=== PATIENT | male | born 1945 | race Caucasian/White ===

== ENCOUNTER 2019-01-19 08:32 | Inpatient (IN) | payer OTHER ==
[~2019-01-19] VITALS: Ht 177.8 cm; Wt 100.8 kg
--- NOTE | ~2019-01-19 | HC ---
[facility] [place] [address] CONSULTATION Name: RALPH BRADSHAW Room #: 357-P ADM IN M.R.#: [id number] Admission: 01/19/19 Attend Phys: Julian Davies MD Discharge: Date of : 41 Report #: [id number] THIS REPORT FOR: //name// CC: Cristino Davies REASON FOR CONSULTATION: End-stage renal disease. REASON FOR PRESENTATION: Weakness. HISTORY OF PRESENT ILLNESS: This has an end-stage renal disease patient, who does not have a good understanding of his medical problems. He has been on dialysis for some time. He follows with another design analyst. Unfortunately, the details are not clear to me. The patient was brought because of repeated falls per the history, but the patient completely denies any falls. He dialyzes every Thursday, Thursday and Thursday. He was at for some time. He did not intend to go to his dialysis on Thursday, which was yesterday. He was brought to the hospital for further evaluation of his falls. There is a report that he had some runs of V-tach en route. Again, the details of the history are very limited given the patient's unawareness of his medical issues. ALLERGIES: MEPERIDINE. MEDICATIONS: 1. Lisinopril. 2. Carvedilol. 3. Fentanyl. 4. Gabapentin. 5. Glipizide. 6. Levothyroxine. 7. Requip. 8. Sevelamer PAST MEDICAL HISTORY: 1. Diabetes mellitus, even though the patient denies awareness of diabetes mellitus. 2. Hypertension. 3. End-stage renal disease with unclear source. 4. Right AV fistula. REVIEW OF SYSTEMS: The patient's mental status is not clear enough to provide me with the details of his review of systems. FAMILY HISTORY: Unobtainable given the patient's current mental status. PHYSICAL EXAMINATION: GENERAL: He is somewhat confused. [facility] [address] [place] [address] CONSULTATION Name: RALPH BRADSHAW Room #: 357-P [facility].#: [id number] Admission: 01/19/19 Attend Phys: Julian Davies MD Discharge: Date of : 41 Report #: [id number] VITAL SIGNS: Blood pressure is 150/80. He is afebrile, temperature 37.1; pulse rate is 87. HEAD AND NECK: No jugular venous distention. CHEST: Minimal crackles. CARDIOVASCULAR: No rub detected. ABDOMEN: Soft, nontender. EXTREMITIES: Lower extremities: No edema. Upper extremities: Right AV fistula. LABORATORY DATA: Reviewed. Sodium 138, BUN is 44, creatinine is 6.2, calcium is 10.2, phosphorus is 6.6. IMPRESSION AND PLAN: 1. End-stage renal disease. 2. Noncompliance. 3. Diabetes mellitus. 4. Hypertension. 5. Repeated falls. 6. The patient received hemodialysis appropriately yesterday and we will continue to do the usual dialysis every Thursday, Thursday and Thursday. 7. He does have major issues with hypercalcemia and hyperphosphatemia. His hypercalcemia is likely related to vitamin D products that he received in his dialysis unit and those will be held. His hyperphosphatemia is expected and likely related to noncompliance with medications and diet. He was initiated on his phosphorus binders. By: [id number] Marie Conrad MD /nt
[~2019-01-19 08:32] MED LIST: CIPRO500 MG PO; HYDROCODONE-AP1 EAC6; PRINIVIL10 MG PO
[2019-01-19 10:02] LABS: CALCIUM 10.9 mg/dL (8.5-10.1); CREATININE 10.5 mg/dL (0.7-1.3); POTASSIUM 5.3 mmol/L (3.5-5.1)
[2019-01-19 10:08] LABS: ABSOLUTE NEUTROPHILS 9.5 thou/uL (1.4-8.2); BASOPHILS 0.3 % (0.0-2.0); EOSINOPHILS 0.3 % (0.0-3.0); HEMATOCRIT 27.5 % (42.0-52.0); HEMOGLOBIN 8.8 gm/dL (14.0-18.0); INR 2.8; LYMPHOCYTES 6.5 % (24.0-44.0); MCH 30.3 pg (26.0-34.0); MCV 94.9 fL (80.0-100.0); MONOCYTES 7.9 % (1.0-8.0); PLATELET COUNT 229 thou/uL (150-400); PROTIME 29.4 Seconds (9.3-11.4); RDW 19.6 % (10.5-14.5); WBC 11.2 thou/uL (4.0-11.0)
[2019-01-19 10:20] LABS: ALBUMIN 2.6 g/dL (3.4-5.0); DIRECT BILIRUBIN 0.1 mg/dL (<0.1-0.2); MAGNESIUM 2.7 mg/dL (1.8-2.4); TOTAL BILIRUBIN 0.3 mg/dL (<0.1-1.0); TOTAL PROTEIN 8.2 g/dL (6.4-8.2)
[2019-01-19 13:37] VITALS: BP 151/82
[2019-01-19 15:00] VITALS: BP 153/82
[2019-01-19 15:03] VITALS: BP 149/92
[2019-01-19 16:42] VITALS: BP 164/97
--- NOTE | 2019-01-19 17:48 | NUR ---
PT CARE ASSUMED APPROX 1500 FROM ED. ASSESSMENT CHARTED. PT DENIES PAIN AND SOA. VSS. SPOUSE AT BEDSIDE AT THIS TIME. ALL QUESTIONS ANSWERED AND CLINICAL UPDATES GIVEN. NO QUESTIONS REGARDING POC. PT TOLERATING HD. BS WNL. BRUISES NOTED BUT NO OPEN AREAS. SPOUSE REMAINS AT BEDSIDE. PT RESTING. NO DISTRESS.
[2019-01-19] MEDS ORDERED: LIPITOR40 MG PO (18:32)
[2019-01-19] MEDS ORDERED: CARVEDILOL12.5 MG PO (18:33)
[2019-01-19] MEDS ORDERED: VALIUM10 MG PO (18:35)
[2019-01-19] MEDS ORDERED: DELTA D310 MCG PO (18:35)
[2019-01-19] MEDS ORDERED: DEPAKOTE 250MG250 MG PO (18:42)
[2019-01-19] MEDS ORDERED: DULCOLAX STOOL100 M1 PO (18:44)
[2019-01-19] MEDS ORDERED: FENTANYL1 EAC4 TRANSDERM (18:45)
[2019-01-19] MEDS ORDERED: GLIPIZIDE 10 MG10 MG PO (18:46)
[2019-01-19] MEDS ORDERED: GABAPENTIN100 MG PO (18:46)
[2019-01-19] MEDS ORDERED: LEVO-T100 MCG PO (18:47)
[2019-01-19] MEDS ORDERED: REQUIP 0.25 M0.25 MG PO (18:48)
[2019-01-19] MEDS ORDERED: NEPHRO-VITE RX1 TA1 PO (18:48)
[2019-01-19] MEDS ORDERED: MIRALAX119 GM PO (18:48)
[2019-01-19] MEDS ORDERED: SENNA PLUS TAB1 EACH PO (18:49)
[2019-01-19] MEDS ORDERED: ZOLOFT100 MG PO (18:49)
[2019-01-19] MEDS ORDERED: SERTRALINE HCL100 MG PO (18:50)
[2019-01-19] MEDS ORDERED: FLOMAX0.4 MG PO (18:51)
[2019-01-19] MEDS ORDERED: RENVELA0.8 GM PO (18:51)
[2019-01-19 19:20] LABS: % SATURATION 19 % (20-39); IRON 23 ug/dL (65-175); TIBC 119 ug/dL (250-450)
[2019-01-19 20:04] LABS: FOLIC ACID 18.5 ng/mL (8.6-58.9)
[2019-01-19 20:58] VITALS: BP 142/69
[2019-01-19 23:56] VITALS: BP 178/98
[2019-01-20 04:25] VITALS: BP 152/86
--- NOTE | 2019-01-20 04:50 | NUR ---
Patient completed dialysis around 2029. His right arm/ arm with dialysis port continues to be red, swollen, and painful. Dialysis output: 2.5L this evening. Patient has struggled to uinate in the urinal NOC and attempts to use the urinal repeatedly, unsuccesfully. He moved his bowels using the bedpan NOC. Around 2199 patient became more hostile and vocalized his disatisfaction with his health issues and hospitalization. Patient denies the seriousness nature of his issues, stating he is "fine" and that he didn't fall at home. At this time he repeatedly called out for his and he didn't know where was. Nursing will continue to monitor.
[2019-01-20 05:49] LABS: HEMATOCRIT 27.6 % (42.0-52.0); HEMOGLOBIN 8.8 gm/dL (14.0-18.0); MCH 30.6 pg (26.0-34.0); MCV 95.5 fL (80.0-100.0); PLATELET COUNT 258 thou/uL (150-400); RBC 2.89 mil/uL (4.50-6.00); RDW 19.6 % (10.5-14.5); WBC 6.8 thou/uL (4.0-11.0)
[2019-01-20 06:06] LABS: ALBUMIN 2.6 g/dL (3.4-5.0); CALCIUM 10.2 mg/dL (8.5-10.1); MAGNESIUM 2.3 mg/dL (1.8-2.4); PHOSPHORUS 6.6 mg/dL (2.5-4.9)
[2019-01-20 06:28] LABS: CREATININE 6.2 mg/dL (0.7-1.3); POTASSIUM 3.9 mmol/L (3.5-5.1)
--- NOTE | 2019-01-20 07:37 | NUR ---
ASSESSMENT: CM REVIEWED CHART AND MET WITH PATIENT AT THE BEDSIDE. PT WAS ADMITTED FOR FREQUENT FALLS. PT HAS HX OF ESRD AND IS ON DIALYSIS. PT REPORTS THAT HE GOES TO [facility] AND GOES M-W- NOON CHAIR TIME. PT MISSED HIS DIALYSIS ON THURSDAY PER REPORT. PT LIVES AT HOME IN A HOUSE WITH HIS . PT REPORTS HE HAS ABOUT 5 STEPS TO ENTER THE HOME WITH HANDRAILS AND HAS 5 STEPS UP TO THE MAIN LEVEL AND 5 DOWN. PT REPORTS THAT HE AMBULATES USING A CANE OR WAKLER NORMALLY. PT REPORTS THAT HE HAS A GRAB BAR IN THE SHOWER. PT REPORTS HE HAS HAD [facility] IN THE PAST AND HAS ALSO BEEN TO [facility] FOR SNF STAY IN THE PAST. CM SPOKE WITH PATIENTS KAILA WHO REPORTS SHE WILL BE UP TO SEE PATIENT THIS EVENING BUT IF SHE NEEDS TO BE REACHED TO CONTACT HER AT WORK AT [phone]. CM PASSED THIS ON TO BEDSIDE RN. PT AWAITING PT/IOT EVALS. CM WILL CONTINUE TO FOLLOW TO ASSIST NEEDED.
[2019-01-20 07:54] VITALS: BP 163/90
--- NOTE | 2019-01-20 08:24 | EKG ---
[address] [address] ELECTROCARDIOGRAM REPORT Name: RALPH BRADSHAW Room #: 357-P ADM IN M.R.#: [id number] Admission: 01/19/19 Attend Phys: Julian Davies MD Discharge: Date of : 41 Report #: [id number] THIS REPORT FOR: //name// [facility] ED Test Date: 2019-01-19 Test Time: 08:40:44 Pat Name: RALPH BRADSHAW Department: Room: 357 Gender: M Box Brander: adwoa : 1945 Requested By: Nichole Montero Order Number: [id number] MD: Akhil Cordova Measurements Intervals [place] Rate: 80 P: -53 AR: 160 QRS: 248 QRSD: 159 T: 23 QT: 410 QTc: 473 Interpretive Statements Atrial-paced complexes RBBB No ischemic changes No further analysis attempted due to paced rhythm No previous ECG available for comparison Electronically Signed On 01-20-2019 8:24:02 [employer] by Akhil Cordova [email or web address] <ELECTRONICALLY SIGNED> By: Akhil Cordova MD 01/20/19 0824 9 9 Akhil Cordova MD /RAMON
--- NOTE | 2019-01-20 09:28 | NUR ---
Nutrition: Assessed due to consult for "other". Admit: frequent falls, missed dialysis, hyperkalemia. Hx: ESRD on dialysis MWF, HTN, a fib, diabetes, severe DJD. Pt on a renal diet. Resting in bed this AM during RD visit. He denies any nutrition concerns or questions. No appetite troubles and denies any skipping of meals. Reports familiarity w/ renal diet restrictions, declined any review. Discussed current elevated phos at 6.6, on renvela phosphate binders TID w/ meals. Pt replies, "If I , so what?" Encouraged pt to eat as able at meals, encouraging protein first. Pointed out eggs and 1/2 c milk as quiroz protein on breakfast today. He declined any added protein supplementation stating meals are "enough." Keep as low nutrition risk for now, monitor for any po changes.
[2019-01-20 09:54] LABS: ABSOLUTE NEUTROPHILS 5.2 thou/uL (1.4-8.2); ANISOCYTOSIS 1+; PLATELET ESTIMATE NORMAL
[2019-01-20 11:10] VITALS: BP 134/78
[2019-01-20 16:52] VITALS: BP 151/61
[2019-01-20 18:24] LABS: URINE BILIRUBIN NEGATIVE (Negative); URINE BLOOD 3+ (Negative); URINE CLARITY CLEAR; URINE COLOR YELLOW; URINE GLUCOSE-RANDOM* TRACE (Negative); URINE KETONES NEGATIVE (Negative); URINE NITRITE-REFLEX NEGATIVE (Negative); URINE PROTEIN (DIPSTICK) 2+ (Negative); URINE UROBILINOGEN 0.2 E.U./dl (0.2-1.0)
[2019-01-20 18:25] LABS: URINE LEUKOCYTES-REFLEX 2+ (Negative)
[2019-01-20 18:31] LABS: BACTERIA-REFLEX None Seen /HPF (None Seen); CASTS None Seen /LPF (None Seen); CRYSTALS None Seen /LPF (None Seen); SQUAMOUS None Seen /LPF (0-3); URINE RBC >20 Many /HPF (0-2); URINE WBC-REFLEX 0-5 Rare /HPF (0-5)
[2019-01-20 19:14] VITALS: BP 162/45
[2019-01-20 22:05] VITALS: BP 137/63
[2019-01-21 01:06] LABS: HEP B SURFACE Ab(ANTI-HBS Reactive (()); HEPATITIS B SURFACE AG Negative (Negative)
[2019-01-21 04:49] VITALS: BP 143/57
[2019-01-21 07:56] VITALS: BP 131/64
[2019-01-21 11:25] VITALS: BP 147/64
[2019-01-21 13:12] VITALS: BP 147/64
--- NOTE | 2019-01-21 13:15 | NUR ---
ON-GOING ASSESSMENT:CM REVIEWED CHART AND MET WITH PATIENT AT THE BEDSIDE. [facility] WAS CONSULTED AND REPORTED THEY COULD ACCEPT PT FOR ADMISSION. CM MET WITH PATIENT AT THE BEDSIDE AND HE STATES HE DOES NOT WANT TO GO TO [facility] AND HE IS GOING BACK HOME. CM DISCUSSED THE BENEFITS AND RECOMMENDATIONS FOR [facility] AND PT CONTINUES TO DELCINE. CM REACHED OUT TO PATIENTS KAILA WHO ALSO TRIED TO TALK TO PATIENT ABOUT GOING TO [facility] BUT PT IS NOT AGREEABLE. PT STATES HE PLANS ON RETURNING HOME WITH HH. PT HAD [facility] IN THE PAST SO CM FAXED REFERRAL AND THEY CAN ACCEPT PT. PLANS ARE FOR PATIENT TO LIKELY DISCHARGE OVER THE WEEKEND. IF PATIENTS DISCHARGES OVER THE WEEKEND CONTACT [facility] AT [phone] AND FAX THEM DISCHARGE ORDERS AND SUMMARY TO THEIR FAX:[phone]. ALSO FAX D/C SUMMARY AND ORDERS TO [facility] FAX:[phone].
--- NOTE | 2019-01-21 13:52 | NUR ---
PATIENT SEEN BY JUSTEN SMITH NP WITH DR. SIMS. PATIENT IS A CANDIDATE FOR ACUTE REHAB, BUT HAS DECLINED TO COME TO REHAB. PATIENT PLANS TO GO HOME EVEN AFTER DISCUSSED WITH PATIENT AND RECOMMENEDED PATIENT GO TO REHAB. DISCUSSED WITH SLEEVE SETTER SAF[employer]Y STITCH AND PHYSICIN IS AWARE. THANK YOU FOR THIS REFERRAL.
[2019-01-21 15:09] VITALS: BP 125/57
--- NOTE | 2019-01-21 18:33 | NUR ---
ASSUMED PATIENT CARE AT 0700. A/O X4. HD MOVED 2.5L. PATIENT REFUSED GO TO [facility]. ASSISTED UP WALK. SLOWLY TOWARDS POC GOALS.
[2019-01-21 19:50] VITALS: BP 138/40
[2019-01-22 03:30] VITALS: BP 147/72
[2019-01-22 05:11] LABS: HEMATOCRIT 24.2 % (42.0-52.0); HEMOGLOBIN 7.6 gm/dL (14.0-18.0); MCH 29.9 pg (26.0-34.0); MCHC 31.6 g/dL (28.0-37.0); MCV 94.8 fL (80.0-100.0); RBC 2.55 mil/uL (4.50-6.00); RDW 19.3 % (10.5-14.5); WBC 6.7 thou/uL (4.0-11.0)
[2019-01-22 05:22] LABS: CALCIUM 9.9 mg/dL (8.5-10.1); POTASSIUM 3.4 mmol/L (3.5-5.1)
[2019-01-22 05:29] LABS: CREATININE 4.8 mg/dL (0.7-1.3)
[2019-01-22 07:14] VITALS: BP 154/79
--- NOTE | 2019-01-22 07:20 | NUR ---
ASSUMED CARE AT 1900. ASSESSMENT COMPLETED. PT C/O HEADACHE AND RIGHT, LOWER BACK PAIN; GAVE TYLENOL ONCE AND PERCOCET ONCE. DENIED SOB. PT UP TO TOILET AROUND MIDNIGHT TO HAVE BM, BECAME NAUSEATED, HAD SMALL AMOUNT OF CLEAR EMESIS. OFFERED ANTI-EMETIC, BUT PT DECLINED AND HAD NO FURTHER NAUSEA OVERNIGHT. LOW URINE OUTPUT IN ROA, ONLY 50 ML; DID NOT HAVE A BM WHEN UP TO TOILET. POTASSIUM SLIGHTLY LOW, GAVE A ONE TIME DOSE PER DR. MATAMOROS. NO OTHER CONCERNS, SHIFT REPORT GIVEN AT 0700.
[2019-01-22 15:08] VITALS: BP 170/84
--- NOTE | 2019-01-22 16:34 | NUR ---
ASSUMED PATIENT CARE AT 0700. A/O X4. DEPRESSED. MISERABLE MORNING THAT WANTS . POOR APPETITE. WANTS GO HOME. NOT TOWARDS POC GOALS.
[2019-01-22 19:12] VITALS: BP 150/83
[2019-01-23 03:56] LABS: ABSOLUTE NEUTROPHILS 4.4 thou/uL (1.4-8.2); BASOPHILS 0.9 % (0.0-2.0); EOSINOPHILS 3.8 % (0.0-3.0); HEMATOCRIT 24.3 % (42.0-52.0); HEMOGLOBIN 7.7 gm/dL (14.0-18.0); LYMPHOCYTES 16.8 % (24.0-44.0); MCH 30.2 pg (26.0-34.0); MCHC 31.9 g/dL (28.0-37.0); MCV 94.7 fL (80.0-100.0); PLATELET COUNT 248 thou/uL (150-400); POLYS 66.5 % (36.0-66.0); RBC 2.56 mil/uL (4.50-6.00); RDW 19.2 % (10.5-14.5); WBC 6.6 thou/uL (4.0-11.0)
[2019-01-23 04:14] LABS: ALBUMIN 2.6 g/dL (3.4-5.0); CALCIUM 9.8 mg/dL (8.5-10.1); POTASSIUM 3.8 mmol/L (3.5-5.1)
[2019-01-23 04:15] LABS: CREATININE 6.2 mg/dL (0.7-1.3)
[2019-01-23 04:44] VITALS: BP 164/83
[2019-01-23 07:20] VITALS: BP 124/65
--- NOTE | 2019-01-23 07:26 | NUR ---
PATIENT IS ALERT AND ORIENTED. PATIENT IS UP WITH ONE. PATIENTS PAIN IS TREATED WITH PAIN MEDICATION. PATIENT IS DIALYSIS. PATIENT IS PENDING POSSIBLE DISCHARGE THIS AM. [facility].
[2019-01-23 08:55] VITALS: BP 124/65
[2019-01-23] MEDS ORDERED: CLOPIDOGREL75 MG PO (12:24)
[2019-01-23] MEDS ORDERED: PERCOCET 5-3251 EACH PO (12:36)
--- NOTE | 2019-01-23 15:14 | NUR ---
ASSUMED PATIENT CARE AT 0700. A/0 X4. NO DISDRESS NOTED. DC TO HOME NOW.
--- NOTE | 2019-01-25 16:15 | NUR ---
NOTIFIED BY NICOL AT [facility] THAT THEY DID NOT RECEIVED DC ORDERS/SUMMARY WHEN PT DISCHARGED 01/23. FAXED DC ORDERS/SUMMARY TO [facility] SPOKE WITH NICOL IN ADM SHE RECEIVED DC ORDERS AND WILL NOTIFY PT TIME OF VISITS.
== END 2019-01-23 15:18 | disposition home health service (06) | DRG 604 ==
LOC: ER 08:32 → 3W 11:50 → EROBS 11:50 → 3W 15:04
PROVIDERS: Emergency Medicine Emergency Medical Services; Internal Medicine; Nurse Practitioner; Nurse Practitioner Family; ADMIT Hospitalist
DX: S00.83XA Contusion of other part of head, initial encounter (principal); N18.6 End stage renal disease; E44.0 Moderate protein-calorie malnutrition; I47.2 Ventricular tachycardia; E70.1 Other hyperphenylalaninemias; I12.0 Hypertensive chronic kidney disease with stage 5 chronic kidney disease or end stage renal disease; E83.39 Other disorders of phosphorus metabolism; Z66 Do not resuscitate; M79.89 Other specified soft tissue disorders; E53.8 Deficiency of other specified B group vitamins; D63.8 Anemia in other chronic diseases classified elsewhere; M17.10 Unilateral primary osteoarthritis, unspecified knee; W18.39XA Other fall on same level, initial encounter; I48.91 Unspecified atrial fibrillation; G25.81 Restless legs syndrome; E03.9 Hypothyroidism, unspecified; E87.6 Hypokalemia; G89.29 Other chronic pain; M54.5 Low back pain; E11.22 Type 2 diabetes mellitus with diabetic chronic kidney disease; E78.5 Hyperlipidemia, unspecified; E83.52 Hypercalcemia; Z79.899 Other long term (current) drug therapy; Z79.2 Long term (current) use of antibiotics; Z88.6 Allergy status to analgesic agent; Z68.31 Body mass index [BMI] 31.0-31.9, adult; Z95.5 Presence of coronary angioplasty implant and graft; Z72.89 Other problems related to lifestyle; Z99.2 Dependence on renal dialysis; Z86.718 Personal history of other venous thrombosis and embolism; Z79.01 Long term (current) use of anticoagulants; Z85.828 Personal history of other malignant neoplasm of skin; Z79.4 Long term (current) use of insulin; Z91.81 History of falling; Y93.89 Activity, other specified; Y92.009 Unspecified place in unspecified non-institutional (private) residence as the place of occurrence of the external cause; Y99.8 Other external cause status; Z91.15 Patient's noncompliance with renal dialysis
CPT/HCPCS: 10779; 10879; 32100